=== PATIENT | female | born 1975 | race Caucasian/White ===

== ENCOUNTER → 2016-06-01 | Outpatient (CLI) | payer MEDICAID ==
[~2016-06-01] MED LIST: BACTRIM DS 8001 TA1 PO; BACTRIM DS 8001 TAB PO; CIPRO 500MG TA500 MG PO; EC NAPROSYN500 MG PO; ESCITALOPRAM20 MG PO; FLEXERIL10 MG PO; HYDROCODONE1 TABLET PO; KEFLEX 500MG.500 MG PO; LEXAPRO 10 MG T10 MG PO; LEXAPRO 20 MG T20 MG PO; LEXAPRO5 MG PO; LISINOPRIL 5MG T5 MG PO; LORTAB 500 MG-71 TAB PO; MACROBID100 M3 PO; MEDROL 4MG. DOSE4 MG PO; METOPROLOL SUCC50 M1 PO; MOTRIN600 MG PO; NORCO 325 MG-51 TAB PO; PEN-VK500 MG PO; PERCOCET 5/3251 EACH PO; PHENAZOPYRIDIN200 MG PO; PHENERGAN 25MG.25 M1 PO; PYRIDIUM100 M2 PO; PYRIDIUM200 M2 PO; QUETIAPINE FUMA25 M1 PO; ULTRAM 50 MG TA50 MG PO; ZITHROMAX Z PA250 MG PO; ZOFRAN ODT4 MG PO
--- NOTE | 2016-06-02 13:57 | RADIOLOGY REPORT PS360 ---
DIG MAMM-SCREEN PIERRE W/CAD CAD Screening ORDERING PHYSICIAN : Lauren Myers PATIENT AGE: 41 years GENDER: Female COMPARISON/history:.: 41-year-old baseline mammogram no previous studiesNo exogenous hormones. Family history. Maternal with breast cancer premenopausa TECHNIQUE: Standard CC and MLO images were obtained. R2 CAD reviewed. FINDINGS: Low-density fatty changes breast bilaterally. No areas of significant concern No areas suspicious for malignancy Large volume breast. There is minimal scattered low-density areas bilaterally which can be followed. Benign. A few benign calcifications also noted. IMPRESSION: 1.. No suspicious findings. No areas of significant concern on this baseline mammogram Routine bilateral follow-up recommended BI-RADS CATEGORY: 1_Negative RECOMMENDED FOLLOWUP: 12M 12 MONTH FOLLOW-UP (A letter has been sent to the patient regarding results of the study.)
== END ==
LOC: RAD 15:29
DX: Z12.31 Encounter for screening mammogram for malignant neoplasm of breast (principal)
CPT/HCPCS: G0202

== ENCOUNTER 2016-06-07 12:07 | Emergency (ER) | payer MEDICAID ==
[~2016-06-07] VITALS: Ht 162.6 cm; Wt 144.2 kg
[~2016-06-07 12:07] MED LIST changes: -LEXAPRO 20 MG T20 MG PO; -MACROBID100 M3 PO; -METOPROLOL SUCC50 M1 PO; -PYRIDIUM100 M2 PO
[2016-06-07] MEDS ORDERED: METOPROLOL SUCC50 M1 PO (12:18)
[2016-06-07] MEDS ORDERED: LEXAPRO 20 MG T20 MG PO (12:18)
--- NOTE | 2016-06-07 13:22 | Emergency Room Report ---
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 N Clinical Suspician of Infection? N Mental Status: 1 - Regular (Normal Baseline) Sepsis Risk:Possible Sepsis Risk Have you (or family members/close friends) recently traveled outside the [place]? N If Yes, where/when: Have you had exposure to infectious disease within the past month? N TB? Other? Specify: Fell on back porch when slipped three days ago, neg LOC, reached out with left arm and has left shoulder pain extending into clavicle, no SOB; also has coccyx pain. No neurological symptoms currently. ALLERGIES Coded Allergies: No Known Drug Allergies (10/09/15) Home Medications Reported Medications Quetiapine Fumarate 25 MG PO QHS #30 Escitalopram Oxalate (Lexapro 20MG) 20 MG PO DAILY Metoprolol Succinate Xl (Metoprolol ER 50MG) 50 MG PO DAILY History Medical History General CAD? No Angina: No [place]: No Hypertension? Yes Hyperlipidemia? No CHF? No DVT? No PE? No COPD? No Asthma? No Anemia? No GERD? No Gastric ulcers? No GI Bleed? No Hernia? No Thyroid Problems? No Hypothyroidism? No CVA? No Seizures? No Diabetes? No Renal Insuffiency? No End Stage Renal Disease? No UTI? Yes Stones? Yes BPH? No GB Disease: Yes Nephritic Syndrome? No Asplenia? No Hepatitis? No Sickle Cell Disease? No Arthritis? No Migraines? No Cataracts? No Glaucoma? No MRSA? No HIV? No TB? No Anxiety? No Depression? Yes Cancer? 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 Hx LMP menopause Family History Family Hx Diabetes Yes CAD No Hypertension Yes Hyperlipidemia No Cancer Yes TB No Social History Smoking Hx Smoker: Current Every Day Smoker Tobacco: Yes Type Cigarettes Packs/day < 1 Pack Are you/the child exposed to second-hand smoke: Yes Alcohol Alcohol: No Review of Systems All Other Systems Reviewed and Negative Musculoskeletal see HPI Physical Exam Vital Signs Vital Signs Date Time Temp Pulse Resp B/P Pulse O2 O2 Flow FiO2 Ox Delivery Rate 06/07 1313 66 18 148/92 97 06/07 1212 98.4 102 20 175/101 96 General Appearance normal appearance, WD/WN, no apparent distress Eye Exam - bilateral eye normal exam Neck normal inspection, non-tender, supple, full range of motion Respiratory Status Yes: trachea midline, chest symmetrical, non tender chest. No: respiratory distress, tender on palpation, use of accessory muscles, pain on inspiration, pain on expiration, productive cough, non productive cough. Lung Sounds bilateral: normal breath sounds, lungs clear. Cardiovascular normal exam, regular rate/rhythm, no peripheral edema, no gallop, no JVD, no murmur, no rub, normal peripheral pulses Gastrointestinal normal bowel sounds, normal exam, non tender, soft, no organomegaly, no pulsatile mass, no guarding, no rebound Back normal inspection, no vertebral tenderness (subjective pain coccyx) Extremities normal range of motion, normal inspection, no pedal edema, pelvis stable, diffuse pain left shoulder; clavicle mildly tender laterally. No crepitus, deformity, stepoffs or subcutaneous air noted. No asymmetry. Remainder of extremities FROM all joints and atraumatic. Neurologic alert, normal exam, no motor/sensory deficits, oriented x 3 Glascow Coma Scale Glascow Coma Scale Response Value EYE response: 4 Spontaneously 4 MOTOR response: 6 OBEYS 6 VERBAL response: 5 Oriented & Converses 5 Total 15 Reflexes DTR 2+ ankle (R), 2+ ankle (L) Skin intact, normal color Medical Decision Making LABS/Meds/Orders Pt receiving controlled substance in ED? No Results/Orders Orders Procedure Date/time Status [id number] VIEWS 06/07 1225 Active COCCYX 2 VIEW 06/07 1225 Active XRAY/CT/US XRAY/CT/US XRAY coccyx XR interpretation by reviewed by me Xray Results normal/NAD, no fracture seen Departure Departure Time of Disposition 1328 Disposition DC Home or Self Care(routine) Clinical Impression Primary Impression: Left shoulder strain Qualifiers: Encounter type: initial encounter Qualified Code: S46.912A - Strain of unspecified muscle, fascia and tendon at shoulder and upper arm level, left arm, initial encounter Secondary Impressions: Coccyx contusion Condition STABLE Referrals Chris TORREZ,Juan Saini (Family) Patient Instructions Contusion Additional Instructions Take Naproxen from [place] at home and follow up with her in one to two days; also take over the counter Tylenol Discharge Counseling Counseled pt/family regarding diagnosis, test results, medications/RX, home care, follow up needs ED Critical Care Critical Care No at [id number]
--- NOTE | 2016-06-07 13:22 | Emergency Room Report ---
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 N Clinical Suspician of Infection? N Mental Status: 1 - Regular (Normal Baseline) Sepsis Risk:Possible Sepsis Risk Have you (or family members/close friends) recently traveled outside the [place]? N If Yes, where/when: Have you had exposure to infectious disease within the past month? N TB? Other? Specify: Fell on back porch when slipped three days ago, neg LOC, reached out with left arm and has left shoulder pain extending into clavicle, no SOB; also has coccyx pain. No neurological symptoms currently. ALLERGIES Coded Allergies: No Known Drug Allergies (10/09/15) Home Medications Reported Medications Quetiapine Fumarate 25 MG PO QHS #30 Escitalopram Oxalate (Lexapro 20MG) 20 MG PO DAILY Metoprolol Succinate Xl (Metoprolol ER 50MG) 50 MG PO DAILY History Medical History General CAD? No Angina: No [place]: No Hypertension? Yes Hyperlipidemia? No CHF? No DVT? No PE? No COPD? No Asthma? No Anemia? No GERD? No Gastric ulcers? No GI Bleed? No Hernia? No Thyroid Problems? No Hypothyroidism? No CVA? No Seizures? No Diabetes? No Renal Insuffiency? No End Stage Renal Disease? No UTI? Yes Stones? Yes BPH? No GB Disease: Yes Nephritic Syndrome? No Asplenia? No Hepatitis? No Sickle Cell Disease? No Arthritis? No Migraines? No Cataracts? No Glaucoma? No MRSA? No HIV? No TB? No Anxiety? No Depression? Yes Cancer? 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 Family History Family Hx Diabetes Yes CAD No Hypertension Yes Hyperlipidemia No Cancer Yes TB No Social History Smoking Hx Smoker: Current Every Day Smoker Tobacco: Yes Type Cigarettes Packs/day < 1 Pack Are you/the child exposed to second-hand smoke: Yes Alcohol Alcohol: No Review of Systems All Other Systems Reviewed and Negative Musculoskeletal see HPI Physical Exam Vital Signs Vital Signs Date Time Temp Pulse Resp B/P Pulse O2 O2 Flow FiO2 Ox Delivery Rate 06/07 1313 66 18 148/92 97 06/07 1212 98.4 102 20 175/101 96 General Appearance normal appearance, WD/WN, no apparent distress Eye Exam - bilateral eye normal exam Neck normal inspection, non-tender, supple, full range of motion Respiratory Status Yes: trachea midline, chest symmetrical, non tender chest. No: respiratory distress, tender on palpation, use of accessory muscles, pain on inspiration, pain on expiration, productive cough, non productive cough. Lung Sounds bilateral: normal breath sounds, lungs clear. Cardiovascular normal exam, regular rate/rhythm, no peripheral edema, no gallop, no JVD, no murmur, no rub, normal peripheral pulses Gastrointestinal normal bowel sounds, normal exam, non tender, soft, no organomegaly, no pulsatile mass, no guarding, no rebound Back normal inspection, no vertebral tenderness (subjective pain coccyx) Extremities normal range of motion, normal inspection, no pedal edema, pelvis stable, diffuse pain left shoulder; clavicle mildly tender laterally. No crepitus, deformity, stepoffs or subcutaneous air noted. No asymmetry. Remainder of extremities FROM all joints and atraumatic. Neurologic alert, normal exam, no motor/sensory deficits, oriented x 3 Glascow Coma Scale Glascow Coma Scale Response Value EYE response: 4 Spontaneously 4 MOTOR response: 6 OBEYS 6 VERBAL response: 5 Oriented & Converses 5 Total 15 Reflexes DTR 2+ ankle (R), 2+ ankle (L) Skin intact, normal color Medical Decision Making LABS/Meds/Orders Pt receiving controlled substance in ED? No Results/Orders Orders Procedure Date/time Status [id number] VIEWS 06/07 1225 Active COCCYX 2 VIEW 06/07 1225 Active XRAY/CT/US XRAY/CT/US XRAY coccyx XR interpretation by reviewed by me Xray Results normal/NAD, no fracture seen Departure Departure Time of Disposition 1328 Disposition DC Home or Self Care(routine) Clinical Impression Primary Impression: Left shoulder strain Qualifiers: Encounter type: initial encounter Qualified Code: S46.912A - Strain of unspecified muscle, fascia and tendon at shoulder and upper arm level, left arm, initial encounter Secondary Impressions: Coccyx contusion Condition STABLE Referrals Chris TORREZ,Juan Saini (Family) Patient Instructions Contusion Additional Instructions Take Naproxen from [place] at home and follow up with her in one to two days; also take over the counter Tylenol Discharge Counseling Counseled pt/family regarding diagnosis, test results, medications/RX, home care, follow up needs ED Critical Care Critical Care No at [phone]
--- NOTE | 2016-06-07 13:31 | RADIOLOGY REPORT PS360 ---
[id number] VIEWS HISTORY: Post traumatic pain fell ORDERING PHYSICIAN: Nani Mireles MD PATIENT AGE: 41 years COMPARISON: None FINDINGS: No fracture or dislocation. No lytic or blastic change. There is normal mineralization. The joint spaces are well-preserved. No significant degenerative/arthritic changes. No erosive changes evident. IMPRESSION: Negative, no acute finding
--- NOTE | 2016-06-07 13:32 | RADIOLOGY REPORT PS360 ---
COCCYX 2 VIEW HISTORY: Pain following injury fell ORDERING PHYSICIAN: Nani Mireles MD PATIENT AGE: 41 years COMPARISON: None FINDINGS: No fracture or dislocation is evident. No significant degenerative change. No lytic or blastic change. Unremarkable soft tissues. Tubal ligation clips are present IMPRESSION: Negative Coccyx
[2016-06-07 13:40] VITALS: BP 148/92
[2016-08-13] MEDS ORDERED: PYRIDIUM100 M2 PO (11:51)
[2016-08-13] MEDS ORDERED: MACROBID100 M3 PO (11:52)
== END 2016-06-07 13:41 | disposition home or self-care (01) ==
LOC: ER 12:07
DX: S46.912A Strain of unspecified muscle, fascia and tendon at shoulder and upper arm level, left arm, initial encounter (principal); S30.0XXA Contusion of lower back and pelvis, initial encounter; W01.0XXA Fall on same level from slipping, tripping and stumbling without subsequent striking against object, initial encounter; Y92.009 Unspecified place in unspecified non-institutional (private) residence as the place of occurrence of the external cause; I10 Essential (primary) hypertension; Z72.0 Tobacco use

== ENCOUNTER 2017-02-02 14:11 | Emergency (ER) | payer MEDICAID ==
[~2017-02-02] VITALS: Ht 167.6 cm; Wt 158.8 kg
[~2017-02-02 14:11] MED LIST changes: +IBUPROFEN800 MG PO; +LEXAPRO 20 MG T20 MG PO; +MACROBID100 M3 PO; +METOPROLOL SUCC50 M1 PO; +PYRIDIUM100 M2 PO
[2017-02-02] MEDS ORDERED: GABAPENTIN300 MG PO (14:18)
--- NOTE | 2017-02-02 14:49 | Urgent Treatment Center Report ---
History of Present Issue Date/Time Seen by Provider 02/02/17 8599 Visit Reason Pt arrived:Walked Presenting Problem:PT STATES SHE WOKE UP WITH BACK PAIN THAT RADIATES DOWN HER LEFT LEG. SHE STATES SHE HAS CHRONIC BACK ISSUES AND HAS FLARES EVERY FEW MONTHS. Location if Accident: Onset of symptoms date/time:/ or onset unknown for:MEDICAL HX UNKNOWN Have you (or family members/close friends) recently traveled outside the [place]? N If Yes, where/when: Have you had exposure to infectious disease within the past month? TB? Other? Specify: Patient state that she has a history of sciatica pain States that she woke up this morning with back pain that is radiating down her left leg States that pain has continued to get worse as the day continued State that she has chronic back pain and tends to have issues with sciatica pain ALLERGIES Coded Allergies: No Known Drug Allergies (10/09/15) Home Medications Active Scripts Ibuprofen (Ibuprofen 800MG) 800 MG PO QIDP PRN pain #30 TAB Prov: 10/25/16 Reported Medications Quetiapine Fumarate 25 MG PO QHS #30 Escitalopram Oxalate (Lexapro 20MG) 20 MG PO DAILY Metoprolol Succinate Xl (Metoprolol ER 50MG) 50 MG PO DAILY Gabapentin (Gabapentin 300MG) 300 MG PO TID History Medical History General CAD? No Angina: No [place]: No Hypertension? Yes Hyperlipidemia? No CHF? No DVT? No PE? No COPD? No Asthma? No Anemia? No GERD? No Gastric ulcers? No GI Bleed? No Hernia? No Thyroid Problems? No Hypothyroidism? No CVA? No Seizures? No Diabetes? No Renal Insuffiency? No UTI? Yes Stones? Yes BPH? No GB Disease: Yes Nephritic Syndrome? No Asplenia? No Hepatitis? No Sickle Cell Disease? No Arthritis? No Migraines? No Cataracts? No Glaucoma? No MRSA? No HIV? No TB? No Anxiety? No Depression? Yes Cancer? No Immunization HX DT/Tetanus > 10 Years Ago Flu Refused Pneumonia Refuses Surgical Hx Previous Surgery?Y TONSILECTOMY CHOLECYSTECTOMY TUBAL LIGATION HYSTERECTOMY Family History Family HX Diabetes Yes CAD No Hypertension Yes Hyperlipidemia No Cancer Yes TB No Social History Smoking Hx Smoker: Current Every Day Smoker Tobacco: Yes Type Cigarettes Packs/day < 1 Pack Alcohol Alcohol: No Review of Systems All Other Systems Reviewed and Negative Physical Exam Vital Signs Vital Signs Date Time Temp Pulse Resp B/P Pulse O2 O2 Flow FiO2 Ox Delivery Rate 02/02 1429 20 02/02 1414 98.0 79 20 144/102 95 General Appearance normal appearance, WD/WN, no apparent distress Respiratory Status Yes: trachea midline, chest symmetrical, non tender chest. No: respiratory distress. 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 No Results/Orders Current Medication Orders Sig/Ashlyn Start time Last Medication Dose Route Stop Time Status Admin Ketorolac 60 MG ONCE ONE 02/02 1430 DC 02/02 Tromethamine IM 02/02 1431 1429 Methylprednisolone 125 MG ONCE ONE 02/02 1430 DC 02/02 Sodium Succinate IM 02/02 1431 1428 Ketorolac 0 .STK-MED ONE 02/02 1424 DC Tromethamine .ROUTE Methylprednisolone 0 .STK-MED ONE 02/02 1424 DC Sodium Succinate .ROUTE Progress [facility] Progress Notes Comment Patient state that medication helped with pain and feels much better Departure Departure Time of Disposition 1459 Disposition DC Home or Self Care(routine) Clinical Impression Primary Impression: Back pain with sciatica Condition STABLE Patient Instructions DI for Back Pain With Sciatica, DI for Sciatica Additional Instructions Follow up with family doctor Over the counter Motrin or Tylenol as needed for pain REturn if needed Stretches as demonstrated in [facility] Discharge Counseling Counseled pt/family regarding diagnosis, test results, medications/RX, home care, follow up needs at 150
--- NOTE | 2017-02-02 14:49 | Urgent Treatment Center Report ---
History of Present Issue Date/Time Seen by Provider 02/02/17 0079 Visit Reason Pt arrived:Walked Presenting Problem:PT STATES SHE WOKE UP WITH BACK PAIN THAT RADIATES DOWN HER LEFT LEG. SHE STATES SHE HAS CHRONIC BACK ISSUES AND HAS FLARES EVERY FEW MONTHS. Location if Accident: Onset of symptoms date/time:/ or onset unknown for:MEDICAL HX UNKNOWN Have you (or family members/close friends) recently traveled outside the [place]? N If Yes, where/when: Have you had exposure to infectious disease within the past month? TB? Other? Specify: Patient state that she has a history of sciatica pain States that she woke up this morning with back pain that is radiating down her left leg States that pain has continued to get worse as the day continued State that she has chronic back pain and tends to have issues with sciatica pain ALLERGIES Coded Allergies: No Known Drug Allergies (10/09/15) Home Medications Active Scripts Ibuprofen (Ibuprofen 800MG) 800 MG PO QIDP PRN pain #30 TAB Prov: 10/25/16 Reported Medications Quetiapine Fumarate 25 MG PO QHS #30 Escitalopram Oxalate (Lexapro 20MG) 20 MG PO DAILY Metoprolol Succinate Xl (Metoprolol ER 50MG) 50 MG PO DAILY Gabapentin (Gabapentin 300MG) 300 MG PO TID History Medical History General CAD? No Angina: No [place]: No Hypertension? Yes Hyperlipidemia? No CHF? No DVT? No PE? No COPD? No Asthma? No Anemia? No GERD? No Gastric ulcers? No GI Bleed? No Hernia? No Thyroid Problems? No Hypothyroidism? No CVA? No Seizures? No Diabetes? No Renal Insuffiency? No UTI? Yes Stones? Yes BPH? No GB Disease: Yes Nephritic Syndrome? No Asplenia? No Hepatitis? No Sickle Cell Disease? No Arthritis? No Migraines? No Cataracts? No Glaucoma? No MRSA? No HIV? No TB? No Anxiety? No Depression? Yes Cancer? No Immunization HX DT/Tetanus > 10 Years Ago Flu Refused Pneumonia Refuses Surgical Hx Previous Surgery?Y TONSILECTOMY CHOLECYSTECTOMY TUBAL LIGATION HYSTERECTOMY Family History Family HX Diabetes Yes CAD No Hypertension Yes Hyperlipidemia No Cancer Yes TB No Social History Smoking Hx Smoker: Current Every Day Smoker Tobacco: Yes Type Cigarettes Packs/day < 1 Pack Alcohol Alcohol: No Review of Systems All Other Systems Reviewed and Negative Physical Exam Vital Signs Vital Signs Date Time Temp Pulse Resp B/P Pulse O2 O2 Flow FiO2 Ox Delivery Rate 02/02 1429 20 02/02 1414 98.0 79 20 144/102 95 General Appearance normal appearance, WD/WN, no apparent distress Respiratory Status Yes: trachea midline, chest symmetrical, non tender chest. No: respiratory distress. 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 No Results/Orders Current Medication Orders Sig/Ashlyn Start time Last Medication Dose Route Stop Time Status Admin Ketorolac 60 MG ONCE ONE 02/02 1430 DC 02/02 Tromethamine IM 02/02 1431 1429 Methylprednisolone 125 MG ONCE ONE 02/02 1430 DC 02/02 Sodium Succinate IM 02/02 1431 1428 Ketorolac 0 .STK-MED ONE 02/02 1424 DC Tromethamine .ROUTE Methylprednisolone 0 .STK-MED ONE 02/02 1424 DC Sodium Succinate .ROUTE Progress [facility] Progress Notes Comment Patient state that medication helped with pain and feels much better Departure Departure Time of Disposition 1459 Disposition DC Home or Self Care(routine) Clinical Impression Primary Impression: Back pain with sciatica Condition STABLE Patient Instructions DI for Back Pain With Sciatica, DI for Sciatica Additional Instructions Follow up with family doctor Over the counter Motrin or Tylenol as needed for pain REturn if needed Stretches as demonstrated in [facility] Discharge Counseling Counseled pt/family regarding diagnosis, test results, medications/RX, home care, follow up needs at 1501
[2017-02-02 15:04] VITALS: BP 144/102
== END 2017-02-02 15:08 | disposition home or self-care (01) ==
LOC: UTC 14:11
DX: M54.42 Lumbago with sciatica, left side (principal); Z79.899 Other long term (current) drug therapy; I10 Essential (primary) hypertension; Z72.0 Tobacco use